=== PATIENT | female | born 1965 | race African-American/Black ===

== ENCOUNTER 2017-06-11 22:14 | Emergency (ER) | payer OTHER ==
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
== END 2017-06-12 00:50 | disposition home or self-care (01) ==
LOC: CED 22:14 → CFTX 22:14 → CED 23:59 → CFTX 06-12 00:50
DX: S16.1XXA Strain of muscle, fascia and tendon at neck level, initial encounter (principal); S39.012A Strain of muscle, fascia and tendon of lower back, initial encounter; S20.219A Contusion of unspecified front wall of thorax, initial encounter; V43.52XA Car driver injured in collision with other type car in traffic accident, initial encounter; Y92.410 Unspecified street and highway as the place of occurrence of the external cause
CPT/HCPCS: 71020; 72040; 72100; 99284